=== PATIENT | female | born 1985 | race African-American/Black ===

== ENCOUNTER 2016-10-14 17:05 | Emergency (ER) | payer OTHER ==
[~2016-10-14] VITALS: Ht 157.5 cm; Wt 75.0 kg
[~2016-10-14 17:05] MED LIST: ACET-1145 PO; AMOX500T PO; NAPR500T8 PO
[2016-10-14 17:08] VITALS: Ht 157.5 cm; Wt 75.0 kg
[2016-10-14] MEDS ORDERED: CEPH-443 PO (17:23)
--- NOTE | 2016-10-14 17:23 | ERD ---
ER Documentation Chief Complaint Date/Time DATE: 10/14/16 TIME: 17:19 Chief Complaint Complains of rash Hx of eczema HPI This pleasant 31-year-old female presents to emergency department today for exacerbation of eczema currently on fluocinide 0.5% prescribed by primary physician. Patient reports she is using cream twice a day with no improvement of symptoms. She is scratching her hands, noted pustules and raised plaques on left palmar hand, and right hand. Patient reports she uses single ingredient soaps, does not use moisturizers, has used baby oil to try to soften plaques. 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 Patient also states she sleeps and cotton gloves without moisturizers. ROS All systems reviewed and are negative except as per history of present illness. Medications Home Meds Active Scripts Hydrophilic Base* (Aquaphor*) 454 Gm-Topical Oint, 1 APPLIC TOP BID for 30 Days , #120 JAR Prov:NICOLE,FABIAN 10/14/16 Cephalexin* (Keflex*) 500 Mg Capsule, 500 MG PO QID for 10 Days, CAP Prov:NICOLE,FABIAN 10/14/16 Reported Medications Naproxen* (Naproxen EC*) Unknown Strength Tablet.dr, PO BID, TAB 04/06/15 Amoxicillin Trihydrate (Amoxicillin) Unknown Strength Tablet, PO QID, TAB 04/06/15 Acetaminophen-Codeine (Tylenol With Codeine #3 Tablet) Unknown Strength Tablet, PO Q4H Y for PAIN, TAB 04/06/15 Allergies Allergies: Coded Allergies: No Known Allergy (Verified , 04/10/14) PMhx/Soc History of Surgery: No Anesthesia Reaction: No Hx Neurological Disorder: No Hx Respiratory Disorders: No Hx Cardiac Disorders: No Hx Psychiatric Problems: No Hx Miscellaneous Medical Probl: No Hx Alcohol Use: No Hx Substance Use: No Hx Tobacco Use: No Physical Exam Vitals Vital Signs Date Time Temp Pulse Resp B/P Pulse Ox O2 Delivery O2 Flow Rate FiO2 10/14/16 17:08 98.5 94 20 161/89 99 Physical Exam Const: No acute distress Head: Atraumatic Eyes: Normal Conjunctiva ENT: Normal External Ears, Nose and Mouth. Neck: Resp: Chest rises and falls symmetrically clear to auscultation bilaterally, no respiratory distress Cardio: Abd: Skin: Right hand presents with thick white plaques, watery vesicle, and erythema and finger webbing and thumb. Left hand presents with thick white plaques, watery vesicles and erythema between digits 3 and forearm, lesion moves between webbing to dorsum of hand. Also noted on lateral aspects of bilateral palms of hands. Skin is dry not oozing, crusted plaques appeared fissured and painful. Back: Ext: Neur: Awake and alert Psych: Normal Mood and Affect Procedures/MDM This 31-year-old female presents to emergency department for evaluation of exacerbation of hand dermatitis. Patient has been diagnosed with eczema, currently using fluocinonide 0.5% topical cream twice daily. Patient is not routinely moisturizing. But does utilize baby oil and sleeping with cotton gloves. 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 Psoriasis, or syphilis is unlikely. Patient will continue use of her fluocinonide ointment twice daily, add Aquaphor moisturizers frequently, lesions appear infected patient will be treated for general staff with Keflex 500 mg 4 times daily 10 days. Return to emergency department if symptoms fail to improve as anticipated. I feel the patient is stable for discharge at this time and outpatient management with primary care physician. I have discussed results, examination findings, the treatment plan with the patient and family present prior to discharge. Indications for emergent reevaluation, side effects of medication were also discussed. All questions were answered. Patient verbalizes understanding and agrees with plan of care. Departure Diagnosis: Primary Impression: Dermatitis Condition: Good Patient Instructions: Atopic Dermatitis (Eczema) Additional Instructions: Thank you for for coming to [facility] for your care today. Please ask your nurse or provider if you have questions about your care today and do not leave until all your questions have been answered. Please use any medications given as directed and follow-up with your doctor (or the doctor you were referred to) in the next 2-3 days. If you do not have a primary care doctor you may follow up at the [facility] (listed below). You may also use motrin and tylenol as needed for fever and/or pain unless instructed otherwise by your provider or nurse. Indications for more urgent follow-up have been discussed, but you may return to the Emergency Department at ANY time for any worrisome or worsening symptoms. If you have abdominal pain, please know that no test or exam you received is perfect and you should follow up within 8 hours for continued pain. If you had any imaging studies today, such as an X-Ray or CT Scan, these studies will be reviewed later by a radiologist. You will be called if there are important findings that were not identified today, so make sure the contact information you provided at registration is correct. If you received any narcotic pain control medicine today, such as Vicodin, Morphine or Dilaudid, your coordination and judgment may be affected for a number of hours. Please do not drive or operate heavy machinery, and you may want someone to assist you at home. If you were given a prescription for narcotic medication, be aware that it is very addictive- use sparingly and only if necessary. FABIAN RIVERA October 14, 2016 17:23
[2016-10-14] MEDS ORDERED: HDRP454O TOP (17:25)
== END 2016-10-14 17:30 | disposition home or self-care (01) ==
LOC: E/R 17:05
DX: L30.9 Dermatitis, unspecified (principal)
CPT/HCPCS: 99283

== ENCOUNTER 2016-10-26 20:07 | Emergency (ER) | payer OTHER ==
[~2016-10-26] VITALS: Wt 72.5 kg
[~2016-10-26 20:07] MED LIST changes: +CEPH-443 PO; +HDRP454O TOP
[2016-10-26] MEDS ORDERED: PRED20TA PO (20:55)
[2016-10-26] MEDS ORDERED: CEPH-443 PO (20:55)
--- NOTE | 2016-10-26 21:08 | ERD ---
ER Documentation Chief Complaint Date/Time DATE: 10/26/16 TIME: 21:02 Chief Complaint Rash got worst possible ecxema HPI This is a 31-year-old female presenting to emergency department for rash and pruritus. Patient states she has had an ongoing rash with pruritus for the past 2 months. Rashes is to palmar aspect of bilateral hands. Patient states she went to her primary doctor and was prescribed cream and then went to a cardiac cath lab radiology technologist who prescribed fluocinonide cream. Patient was seen here on 10/14 and was given a 5 day course of Keflex for possible infection. Patient states the Keflex seemed to improve the rash however her last day of the anabiotic was today and states the rash is starting to "spread again." Patient was diagnosed with severe eczema by her cardiac cath lab radiology technologist. No fevers or chills. No shortness of breath or difficulty breathing. No chest pain. ROS All systems reviewed and are negative except as per history of present illness. Medications Home Meds Active Scripts Cephalexin* (Keflex*) 500 Mg Capsule, 500 MG PO QID for 5 Days, CAP Prov:EDDIE AVALOS NP 10/26/16 Prednisone* (Prednisone*) 20 Mg Tab, 40 MG PO DAILY for 5 Days, TAB Prov:EDDIE AVALOS NP 10/26/16 Hydrophilic Base* (Aquaphor*) 454 Gm-Topical Oint, 1 APPLIC TOP BID for 30 Days , #120 JAR Prov:NICOLE,FABIAN 10/14/16 Cephalexin* (Keflex*) 500 Mg Capsule, 500 MG PO QID for 10 Days, CAP Prov:NICOLE,FABIAN 10/14/16 Reported Medications Naproxen* (Naproxen EC*) Unknown Strength Tablet.dr, PO BID, TAB 04/06/15 Amoxicillin Trihydrate (Amoxicillin) Unknown Strength Tablet, PO QID, TAB 04/06/15 Acetaminophen-Codeine (Tylenol With Codeine #3 Tablet) Unknown Strength Tablet, PO Q4H Y for PAIN, TAB 04/06/15 Allergies Allergies: Coded Allergies: No Known Allergy (Verified , 10/26/16) PMhx/Soc Medical and Surgical Hx: pt denies Medical Hx, pt denies Surgical Hx History of Surgery: No Anesthesia Reaction: No Hx Neurological Disorder: No Hx Respiratory Disorders: No Hx Cardiac Disorders: No Hx Psychiatric Problems: No Hx Miscellaneous Medical Probl: No Hx Alcohol Use: No Hx Substance Use: No Hx Tobacco Use: No Smoking Status: Never smoker Physical Exam Vitals Vital Signs Date Time Temp Pulse Resp B/P Pulse Ox O2 Delivery O2 Flow Rate FiO2 10/26/16 20:36 98.1 79 20 163/100 99 Physical Exam Const: No acute distress, alert Head: Atraumatic Eyes: Normal Conjunctiva ENT: Normal External Ears, Nose and Mouth. Neck: Full range of motion..~ No meningismus. Resp: Clear to auscultation bilaterally Cardio: Regular rate and rhythm, no murmurs Abd: Soft, non tender, non distended. Normal bowel sounds Skin: excoriation and crusting to palm and flexural areas of bilateral palms. mild erythema. no warmth, drainage, induration, abscess. sensation fully intact. Back: No midline or flank tenderness Ext: No cyanosis, or edema Neur: Awake and alert Psych: Normal Mood and Affect Procedures/MDM MDM: This is a 31-year-old female presenting to the emergency department for rash and pruritus. Patient states this is an ongoing problem and has been to see a cardiac cath lab radiology technologist in the past 1.5 months. Patient was diagnosed with eczema and was given a cream fluocinonide. Patient came to the ER on 10/14/2016 and was given prescription for Keflex. Patient states this medication seemed to improve her rash the most. Patient continues to have itching. No fevers or chills. No rashes limited to palmar aspect of bilateral hands especially in Flexural areas. No one else at home is similar rash. No new soaps, detergent, food or medications. Patient likely has atopic dermatitis versus contact dermatitis versus mild bacterial infection. Low suspicion for abscess, scabies or anaphylactic reaction. Patient is appropriate for outpatient management will be given prescription for Keflex and prednisone. Instructed patient to follow-up with primary care provider or cardiac cath lab radiology technologist in the next 2-3 days for reassessment and additional management.. Resources provided. Return to ED for any high fever, chest pain, difficulty breathing, shortness breath, wheezing, vomiting, diarrhea, abdominal pain or any new or worsening symptoms. Patient verbalizes understanding. All questions answered at discharge. Departure Diagnosis: Primary Impression: Eczema Eczema type: unspecified Qualified Code: L30.9 - Eczema, unspecified type Condition: Stable Patient Instructions: What Is Atopic Dermatitis?, Dermatitis, Non-Specific Referrals: TENZIN BENAVIDEZ MD, MICHAEL T. MD [facility] YOU HAVE RECEIVED A MEDICAL SCREENING EXAM AND THE RESULTS INDICATE THAT YOU DO NOT HAVE A CONDITION THAT REQUIRES URGENT TREATMENT IN THE EMERGENCY DEPARTMENT. FURTHER EVALUATION AND TREATMENT OF YOUR CONDITION CAN WAIT UNTIL YOU ARE SEEN IN YOUR DOCTORS OFFICE WITHIN THE NEXT 1-2 DAYS. IT IS YOUR RESPONSIBILITY TO MAKE AN APPOINTMENT FOR FOLOW-UP CARE. IF YOU HAVE A PRIMARY DOCTOR --you should call your primary doctor and schedule an appointment IF YOU DO NOT HAVE A PRIMARY DOCTOR YOU CAN CALL OUR PHYSICIAN REFERRAL HOTLINE AT IF YOU CAN NOT AFFORD TO SEE A PHYSICIAN YOU CAN CHOSE FROM THE FOLLOWING [facility] [address] [facility] [address] [facility] [address] [facility] [address] [facility] [address] [facility]. [facility] [address] [facility] [facility] YOU HAVE RECEIVED A MEDICAL SCREENING EXAM AND THE RESULTS INDICATE THAT YOU DO NOT HAVE A CONDITION THAT REQUIRES URGENT TREATMENT IN THE EMERGENCY DEPARTMENT. FURTHER EVALUATION AND TREATMENT OF YOUR CONDITION CAN WAIT UNTIL YOU ARE SEEN IN YOUR DOCTORS OFFICE WITHIN THE NEXT 1-2 DAYS. IT IS YOUR RESPONSIBILITY TO MAKE AN APPOINTMENT FOR FOLOW-UP CARE. IF YOU HAVE A PRIMARY DOCTOR --you should call your primary doctor and schedule and appointment IF YOU DO NOT HAVE A PRIMARY DOCTOR YOU CAN CALL OUR PHYSICIAN REFERRAL HOTLINE AT . IF YOU CAN NOT AFFORD TO SEE A PHYSICIAN YOU CAN CHOSE FROM THE FOLLOWING [facility]: [facility] [address] [place] [address] [facility] [address] [place] [address] [facility] [address] [place] [address] Additional Instructions: Call your primary care doctor TOMORROW for an appointment during the next 2-3 days.See the doctor sooner or return here if your condition worsens before your appointment time. Return to ED for any high fever, chest pain, difficulty breathing, shortness breath, wheezing, vomiting, diarrhea, abdominal pain or any new or worsening symptoms. EDDIE AVALOS NP Oct 26, 2016 21:08
== END 2016-10-26 21:22 | disposition home or self-care (01) ==
LOC: FTE 20:07
DX: L30.9 Dermatitis, unspecified (principal)
CPT/HCPCS: 99284

== ENCOUNTER 2016-12-10 17:22 | Emergency (ER) | payer OTHER ==
[~2016-12-10] VITALS: Ht 157.5 cm; Wt 72.5 kg
[~2016-12-10 17:22] MED LIST changes: +PRED20TA PO
[2016-12-10 17:26] VITALS: Ht 157.5 cm; Wt 72.5 kg
[2016-12-10] MEDS ORDERED: PRED20TA PO (17:53)
[2016-12-10] MEDS ORDERED: TRIA15OI9 TOP (17:55)
--- NOTE | 2016-12-10 18:05 | ERA ---
ER Documentation Chief Complaint Date/Time DATE: 12/10/16 TIME: 18:01 Chief Complaint eczema to hands HPI This is a 31-year-old female presenting with a 2-3 month history of rash on the palmar aspect hands. Patient states that the rash is moderately pruritic. Patient states that there have been bubbles on the palms that have resolved. Patient tried putting gloves on that were soaked and Aquaphor lotion last night with moderate relief. Patient has seen a gristmill operator but received no treatment to insurance issues. Patient denies fever, difficulty breathing, chest pain, shortness of breath, spreading rash, fever, chills or drainage. Patient has no other complaints and describes no other associated manifestations. Vaccination status is up-to-date there is no recent travel. Nursing notes have been reviewed and are consistent with history given. ROS All systems reviewed and are negative except as per history of present illness. Medications Home Meds Active Scripts Triamcinolone Acetonide (Triamcinolone Acetonide) 0.5% - 15 Gm Oint..gm., 1 APPLIC TOP BID, #1 TUB Prov:KAVON ADAMSON PA-C 12/10/16 Prednisone* (Prednisone*) 20 Mg Tab, 40 MG PO DAILY for 4 Days, TAB Prov:KAVON ADAMSON PA-C 12/10/16 Cephalexin* (Keflex*) 500 Mg Capsule, 500 MG PO QID for 5 Days, CAP Prov:EDDIE AVALOS NP 10/26/16 Prednisone* (Prednisone*) 20 Mg Tab, 40 MG PO DAILY for 5 Days, TAB Prov:EDDIE AVALOS NP 10/26/16 Hydrophilic Base* (Aquaphor*) 454 Gm-Topical Oint, 1 APPLIC TOP BID for 30 Days , #120 JAR Prov:NICOLE,FABIAN 10/14/16 Cephalexin* (Keflex*) 500 Mg Capsule, 500 MG PO QID for 10 Days, CAP Prov:NICOLE,FABIAN 10/14/16 Reported Medications Naproxen* (Naproxen EC*) Unknown Strength Tablet.dr, PO BID, TAB 04/06/15 Amoxicillin Trihydrate (Amoxicillin) Unknown Strength Tablet, PO QID, TAB 04/06/15 Acetaminophen-Codeine (Tylenol With Codeine #3 Tablet) Unknown Strength Tablet, PO Q4H Y for PAIN, TAB 04/06/15 Allergies Allergies: Coded Allergies: No Known Allergy (Verified , 10/26/16) PMhx/Soc Medical and Surgical Hx: pt denies Medical Hx, pt denies Surgical Hx History of Surgery: No Anesthesia Reaction: No Hx Neurological Disorder: No Hx Respiratory Disorders: No Hx Cardiac Disorders: No Hx Psychiatric Problems: No Hx Miscellaneous Medical Probl: No Hx Alcohol Use: No Hx Substance Use: No Hx Tobacco Use: No Smoking Status: Never smoker Physical Exam Vitals Vital Signs Date Time Temp Pulse Resp B/P Pulse Ox O2 Delivery O2 Flow Rate FiO2 12/10/16 17:26 98.9 84 18 186/117 98 Physical Exam Const: Healthy-appearing. Well-nourished. Well-developed. No acute distress. Skin: Excoriation and crusting to palm and flexural areas of bilateral palms. mild erythema and desquamation. no warmth, drainage, induration, abscess. sensation fully intact. Ext: As noted in the skin physical. No edema or palpable cord. Normal movement of all extremities grossly observed. Neur: Awake, alert and oriented x3. Neurovascularly intact bilaterally. Oral: No oral edema visualized. Mucous membranes moist and pink. Head: Normocephalic, Atraumatic. Eyes: Non-injected; No discharge. EOMI and BOGDAN bilaterally. Ears: Normal External Ears, EACs clear, TM normal bilaterally without erythema. Nose: Normal external nose; no discharge, or sinus tenderness. Neck: No cervical lymphadenopathy, masses or goiter palpated. ~ No meningismus. Pulm: Good air movement in upper and lower respiratory tracts. No dyspnea, stridor, tripoding or drooling. Clear to auscultation bilaterally. Cardio: Regular rate and rhythm; No murmurs, gallops or rubs auscultated. No JVD grossly observed. No cyanosis. Capillary refill less than 2 seconds. Abd: Soft, non tender, non distended. No guarding, masses. Normal bowel sounds. MS: Normal motor strength, normal tone with gross examination. Back: No midline, flank or CVA tenderness. Psych: Normal Mood and Affect. Procedures/MDM This is a 31-year-old female presenting with a chief complaint of rash on the palmar aspect of bilateral hands as described in history and physical examination. At this time I very little suspicion for systemic or bacterial involvement. Previous notes have revealed atopic dermatitis which is at the top of the differential along with late dyshidrotic eczema. Patient will receive topical triamcinolone ointment for dryness which is the main complaint along with pruritus. Patient will also receive a four-day course of prednisone as she states that this has helped in the past. Patient has seen a gristmill operator and I have recommended that she follow-up which she says she will be able to do within the next 2 weeks. I recommend that the next 2-3 days would be the best time frame. I have spoken to my attending Dr. Davis who agrees with the assessment and plan. I have spoke with the patient regarding their condition and future management. They have verbally responded that they understand their status and treatment plan. The patients vitals are stable, and their current condition is appropriate for discharge. The patient will be given discharge instructions with return precautions. Departure Diagnosis: Primary Impression: Dermatitis Additional Impressions: Dermatitis, dyshidrotic Dyshidrotic eczema Condition: Stable Patient Instructions: Atopic Dermatitis (Eczema) Additional Instructions: Follow-up with dermatology and 2-3 days. Return the the emergency department immediately if symptoms worsen or change. If you have any questions regarding medications, ask your pharmacist or us before you leave. If any adverse reactions occur while taking your medications, discontinue the treatment and return to the emergency department immediately. Take your medications as directed, and complete the entire course of treatment. KAVON ADAMSON PA-C Dec 10, 2016 18:05
== END 2016-12-10 18:13 | disposition home or self-care (01) ==
LOC: FTE 17:22
DX: L30.1 Dyshidrosis [pompholyx] (principal)
CPT/HCPCS: 99284

== ENCOUNTER 2017-04-08 14:36 | Emergency (ER) | payer OTHER ==
[~2017-04-08] VITALS: Wt 76.0 kg
[~2017-04-08 14:36] MED LIST changes: +TRIA15OI9 TOP
[2017-04-08] MEDS ORDERED: SULF1TAB31 PO (14:56)
[2017-04-08] MEDS ORDERED: IBUP-1542 PO (14:56)
[2017-04-08] MEDS ORDERED: CEPH-443 PO (14:56)
[2017-04-08] MEDS ORDERED: LIDOCAINE 1% (MDV) 20 ML INJ SC ONE (15:00)
[2017-04-08] MEDS ORDERED: HYDROCODONE/APAP (5/325) TAB PO ONE (15:00)
[2017-04-08] MEDS ORDERED: CEPHALEXIN 500 MG CAP PO ONE (15:00)
[2017-04-08] MEDS ORDERED: TRIMETHOPRIM/SULFAMETHOX (DS) TAB PO ONE (15:00)
--- NOTE | 2017-04-08 15:09 | ERD ---
ER Documentation Chief Complaint Chief Complaint r arm abscess HPI 31-year-old female otherwise healthy comes in with right describes as pressure- like sharp pain in the axilla, and this happened after she shaves. She has 2 areas that are swollen. She has not had any fevers, chills, chest pain, shortness of breath. ROS All systems reviewed and are negative except as per history of present illness. Medications Home Meds Active Scripts Ibuprofen* (Motrin*) 600 Mg Tab, 600 MG PO Q6, #30 TAB Prov:CHASTITY HU PA-C 04/08/17 Sulfamethoxazole/Trimethoprim* (Bactrim Ds* Tablet) 1 Each Tablet, 1 TAB PO BID , #14 TAB Prov:CHASTITY HU PA-C 04/08/17 Cephalexin* (Keflex*) 500 Mg Capsule, 500 MG PO QID for 7 Days, CAP Prov:CHASTITY HU PA-C 04/08/17 Triamcinolone Acetonide (Triamcinolone Acetonide) 0.5% - 15 Gm Oint..gm., 1 APPLIC TOP BID, #1 TUB Prov:KAVON ADAMSON PA-C 12/10/16 Prednisone* (Prednisone*) 20 Mg Tab, 40 MG PO DAILY for 4 Days, TAB Prov:KAVON ADAMSON PA-C 12/10/16 Cephalexin* (Keflex*) 500 Mg Capsule, 500 MG PO QID for 5 Days, CAP Prov:EDDIE AVALOS NP 10/26/16 Prednisone* (Prednisone*) 20 Mg Tab, 40 MG PO DAILY for 5 Days, TAB Prov:EDDIE AVALOS NP 10/26/16 Hydrophilic Base* (Aquaphor*) 454 Gm-Topical Oint, 1 APPLIC TOP BID for 30 Days , #120 JAR Prov:NICOLE,FABIAN 10/14/16 Cephalexin* (Keflex*) 500 Mg Capsule, 500 MG PO QID for 10 Days, CAP Prov:NICOLE,FABIAN 10/14/16 Reported Medications Naproxen* (Naproxen EC*) Unknown Strength Tablet.dr, PO BID, TAB 04/06/15 Amoxicillin Trihydrate (Amoxicillin) Unknown Strength Tablet, PO QID, TAB 04/06/15 Acetaminophen-Codeine (Tylenol With Codeine #3 Tablet) Unknown Strength Tablet, PO Q4H Y for PAIN, TAB 04/06/15 Allergies Allergies: Coded Allergies: No Known Allergy (Verified , 10/26/16) PMhx/Soc Medical and Surgical Hx: pt denies Medical Hx, pt denies Surgical Hx History of Surgery: No Anesthesia Reaction: No Hx Neurological Disorder: No Hx Respiratory Disorders: No Hx Cardiac Disorders: No Hx Psychiatric Problems: No Hx Miscellaneous Medical Probl: No Hx Alcohol Use: No Hx Substance Use: No Hx Tobacco Use: No Smoking Status: Never smoker Physical Exam Vitals Vital Signs Date Time Temp Pulse Resp B/P Pulse Ox O2 Delivery O2 Flow Rate FiO2 04/08/17 14:40 99.6 98 20 162/106 99 Physical Exam General: Well-developed, well-nourished. The patient appears in no acute distress. HEENT: Head is normocephalic, atraumatic. No scleral icterus. Neck: Supple. Nontender. Lungs: Clear to auscultation. Normal air movement. Heart: Regular rate and rhythm. S1 and S2 are normal. No murmurs, gallops, or rubs. Abdomen: Nondistended. Extremities: No clubbing or cyanosis. Moving extremities x 4. No weakness. Neurologic: Alert and oriented 3. No focal deficits. Normal speech and gait. Skin: In the right axilla there are 2 abscesses. There is one in the superior portion approximately 1.5 cm that is indurated, tender to palpation with erythema. In the low there is a 2 cm area of induration with a purulent had, it is tender to palpation, mildly fluctuant. There is no lymphatic streaking. Results 24 hrs Current Medications Medications (Trade) Dose Ordered Sig/Gogo Route PRN Reason Start Time Stop Time Status Last Admin Dose Admin Lidocaine (Xylocaine 1% (Mdv) 20 ml) 20 ml ONCE ONCE SC 04/08/17 15:00 04/08/17 15:01 DC Cephalexin (Keflex) 500 mg ONCE ONCE PO 04/08/17 15:00 04/08/17 15:01 DC 04/08/17 15:05 Trimethoprim/ Sulfamethoxazole (Bactrim (Ds)) 1 tab ONCE ONCE PO 04/08/17 15:00 04/08/17 15:01 DC 04/08/17 15:05 Acetaminophen/ Hydrocodone Bitart (Irving (5/325)) 1 tab ONCE ONCE PO 04/08/17 15:00 04/08/17 15:01 DC 04/08/17 15:05 Procedures/MDM #1 Abscess Incision and Drainage with irrigation by me: Patient was verbally consented Location: Right axilla #1 Anesthesia: Local 1% Lidocaine Technique: Irrigated. Disrupted loculations w/ instrumentation Packing: None Complications: Neurovascularly intact post procedure 48 hour wound check. Scar minimization instructions given. #2 Abscess Incision and Drainage with irrigation by me: Patient was verbally consented Location: Right axilla (inferior) Anesthesia: Local 1% Lidocaine Technique: Irrigated. Disrupted loculations w/ instrumentation Packing: None Complications: Neurovascularly intact post procedure 48 hour wound check. Scar minimization instructions given. Patient's skin symptoms have stabilized while they have been evaluated in the department and are appropriate for outpatient care and work up. Exam and w/u not consistent w/ sepsis, deep space infection, or foreign body. Departure Diagnosis: Primary Impression: Abscess Additional Impression: Encounter for incision and drainage procedure Condition: Good Patient Instructions: Abscess, Incision And Drainage Additional Instructions: Follow up in 2 days in your clinic for wound check. CHASTITY HU PA-C Apr 08, 2017 15:09
== END 2017-04-08 15:55 | disposition home or self-care (01) ==
LOC: FTE 14:36
DX: L02.411 Cutaneous abscess of right axilla (principal)
CPT/HCPCS: 10061; Z7502; Z7610

== ENCOUNTER 2017-04-10 06:21 | Emergency (ER) | payer OTHER ==
[~2017-04-10] VITALS: Ht 160 cm; Wt 75.0 kg
[~2017-04-10 06:21] MED LIST changes: +IBUP-1542 PO; +SULF1TAB31 PO
[2017-04-10 06:23] VITALS: Ht 160 cm; Wt 75.0 kg
--- NOTE | 2017-04-10 07:34 | ERD ---
ER Documentation Chief Complaint Chief Complaint right axilla wound check HPI This is a 31-year-old female who presents the emergency department today for a wound check of 2 abscesses she had drained in her right arm a couple of days ago. Denies any fevers or chills. States that she thinks she is getting a cold. States she is taking her antibiotics as prescribed. ROS All systems reviewed and are negative except as per history of present illness. Medications Home Meds Active Scripts Ibuprofen* (Motrin*) 600 Mg Tab, 600 MG PO Q6, #30 TAB Prov:CHASTITY HU PA-C 04/08/17 Sulfamethoxazole/Trimethoprim* (Bactrim Ds* Tablet) 1 Each Tablet, 1 TAB PO BID , #14 TAB Prov:CHASTITY HU PA-C 04/08/17 Cephalexin* (Keflex*) 500 Mg Capsule, 500 MG PO QID for 7 Days, CAP Prov:CHASTITY HU PA-C 04/08/17 Triamcinolone Acetonide (Triamcinolone Acetonide) 0.5% - 15 Gm Oint..gm., 1 APPLIC TOP BID, #1 TUB Prov:KAVON ADAMSON PA-C 12/10/16 Prednisone* (Prednisone*) 20 Mg Tab, 40 MG PO DAILY for 4 Days, TAB Prov:KAVON ADAMSON PA-C 12/10/16 Cephalexin* (Keflex*) 500 Mg Capsule, 500 MG PO QID for 5 Days, CAP Prov:EDDIE AVALOS NP 10/26/16 Prednisone* (Prednisone*) 20 Mg Tab, 40 MG PO DAILY for 5 Days, TAB Prov:EDDIE AVALOS NP 10/26/16 Hydrophilic Base* (Aquaphor*) 454 Gm-Topical Oint, 1 APPLIC TOP BID for 30 Days , #120 JAR Prov:NICOLE,FABIAN 10/14/16 Cephalexin* (Keflex*) 500 Mg Capsule, 500 MG PO QID for 10 Days, CAP Prov:NICOLE,FABIAN 10/14/16 Reported Medications Naproxen* (Naproxen EC*) Unknown Strength Tablet., PO BID, TAB 04/06/15 Amoxicillin Trihydrate (Amoxicillin) Unknown Strength Tablet, PO QID, TAB 04/06/15 Acetaminophen-Codeine (Tylenol With Codeine #3 Tablet) Unknown Strength Tablet, PO Q4H Y for PAIN, TAB 04/06/15 Allergies Allergies: Coded Allergies: No Known Allergy (Verified , 10/26/16) PMhx/Soc History of Surgery: No Anesthesia Reaction: No Hx Neurological Disorder: No Hx Respiratory Disorders: No Hx Cardiac Disorders: No Hx Psychiatric Problems: No Hx Miscellaneous Medical Probl: No Hx Alcohol Use: No Hx Substance Use: No Hx Tobacco Use: No Physical Exam Vitals Vital Signs Date Time Temp Pulse Resp B/P Pulse Ox O2 Delivery O2 Flow Rate FiO2 04/10/17 06:23 98.3 91 20 167/99 99 Physical Exam Const: NAD Head: Atraumatic Eyes: Normal Conjunctiva ENT: Normal External Ears, Nose and Mouth. Neck: Full range of motion..~ No meningismus. Resp: Clear to auscultation bilaterally Cardio: Regular rate and rhythm, no murmurs Abd: Soft, non tender, non distended. Normal bowel sounds Skin: Right axilla with evidence of 2 small abscesses that are draining with mild induration. No erythema or warmth. Back: No midline or flank tenderness Ext: No cyanosis, or edema Neur: Awake and alert Psych: Normal Mood and Affect Procedures/MDM This is a 31-year-old female who presents the emergency department today for a wound check of 2 abscesses that she had drained 2 days ago. Upon review of patient's medical records patient had an incision and drainage on April 08, 2017 for 2 small areas of abscesses in her right axilla. Patient is afebrile and otherwise well-appearing. There was no wound packing in place and upon review of patient's medical records wound packing was not placed. Patient has been instructed to continue taking her antibiotics as prescribed. Have low suspicion for sepsis, deep space tracking infection. Wound was redressed here in the emergency department and she was instructed to keep wound clean and dry. At this time the patient is stable for discharge and outpatient management. Patient should follow up with their PCP in the next 1-2 days. They may return to the emergency department sooner for any persistent or worsening of symptoms. Patient understood and agreed with the plan. Departure Diagnosis: Primary Impression: Encounter for wound re-check Condition: Fair Patient Instructions: Wound Care Referrals: [facility] YOU HAVE RECEIVED A MEDICAL SCREENING EXAM AND THE RESULTS INDICATE THAT YOU DO NOT HAVE A CONDITION THAT REQUIRES URGENT TREATMENT IN THE EMERGENCY DEPARTMENT. FURTHER EVALUATION AND TREATMENT OF YOUR CONDITION CAN WAIT UNTIL YOU ARE SEEN IN YOUR DOCTORS OFFICE WITHIN THE NEXT 1-2 DAYS. IT IS YOUR RESPONSIBILITY TO MAKE AN APPOINTMENT FOR FOLOW-UP CARE. IF YOU HAVE A PRIMARY DOCTOR --you should call your primary doctor and schedule an appointment IF YOU DO NOT HAVE A PRIMARY DOCTOR YOU CAN CALL OUR PHYSICIAN REFERRAL HOTLINE AT IF YOU CAN NOT AFFORD TO SEE A PHYSICIAN YOU CAN CHOSE FROM THE FOLLOWING [facility] [address] [facility] [address] [facility] [address] [facility] [address] [facility]. [facility] [address] [facility]. [facility]. [address] Additional Instructions: Call your primary care doctor TOMORROW for an appointment during the next 1-2 days.See the doctor sooner or return here if your condition worsens before your appointment time. Continue taking your antibiotics as prescribed. Keep area clean and dry. MARIE MORAES PA-C Apr 10, 2017 07:34
== END 2017-04-10 07:27 | disposition home or self-care (01) ==
LOC: FTE 06:21
DX: Z48.01 Encounter for change or removal of surgical wound dressing (principal)
CPT/HCPCS: 99281

== ENCOUNTER 2017-04-26 12:21 | Emergency (ER) | payer OTHER ==
[~2017-04-26] VITALS: Ht 157.5 cm; Wt 75.5 kg
[2017-04-26 12:24] VITALS: Ht 157.5 cm; Wt 75.5 kg
[2017-04-26] MEDS ORDERED: AMOX500C2 PO (12:50)
[2017-04-26] MEDS ORDERED: IBUP-1542 PO (12:50)
--- NOTE | 2017-04-26 12:53 | ERD ---
ER Documentation Chief Complaint Chief Complaint FEVER , SORE THROAT X 2 DAYS HPI This 31-year-old female presents with fever and sore throat for last 3 days. She has cough, vomiting, abdominal pain, neck stiffness, rashes. ROS All systems reviewed and are negative except as per history of present illness. Medications Home Meds Active Scripts Ibuprofen* (Motrin*) 600 Mg Tab, 600 MG PO Q6, #15 TAB Prov:MAG BAPTISTE MD 04/26/17 Amoxicillin* (Amoxicillin*) 500 Mg Cap, 500 MG PO TID for 10 Days, CAP Prov:MAG BAPTISTE MD 04/26/17 Ibuprofen* (Motrin*) 600 Mg Tab, 600 MG PO Q6, #30 TAB Prov:CHASTITY HU PA-C 04/08/17 Sulfamethoxazole/Trimethoprim* (Bactrim Ds* Tablet) 1 Each Tablet, 1 TAB PO BID , #14 TAB Prov:CHASTITY HU PA-C 04/08/17 Cephalexin* (Keflex*) 500 Mg Capsule, 500 MG PO QID for 7 Days, CAP Prov:CHASTITY HU PA-C 04/08/17 Triamcinolone Acetonide (Triamcinolone Acetonide) 0.5% - 15 Gm Oint..gm., 1 APPLIC TOP BID, #1 TUB Prov:KAVON ADAMSON PA-C 12/10/16 Prednisone* (Prednisone*) 20 Mg Tab, 40 MG PO DAILY for 4 Days, TAB Prov:KAVON ADAMSON PA-C 12/10/16 Cephalexin* (Keflex*) 500 Mg Capsule, 500 MG PO QID for 5 Days, CAP Prov:EDDIE AVALOS NP 10/26/16 Prednisone* (Prednisone*) 20 Mg Tab, 40 MG PO DAILY for 5 Days, TAB Prov:EDDIE AVALOS NP 10/26/16 Hydrophilic Base* (Aquaphor*) 454 Gm-Topical Oint, 1 APPLIC TOP BID for 30 Days , #120 JAR Prov:NICOLE,FABIAN 10/14/16 Cephalexin* (Keflex*) 500 Mg Capsule, 500 MG PO QID for 10 Days, CAP Prov:NICOLE,FABIAN 10/14/16 Reported Medications Naproxen* (Naproxen EC*) Unknown Strength Tablet.dr, PO BID, TAB 04/06/15 Amoxicillin Trihydrate (Amoxicillin) Unknown Strength Tablet, PO QID, TAB 04/06/15 Acetaminophen-Codeine (Tylenol With Codeine #3 Tablet) Unknown Strength Tablet, PO Q4H Y for PAIN, TAB 04/06/15 Allergies Allergies: Coded Allergies: No Known Allergy (Verified , 10/26/16) PMhx/Soc History of Surgery: No Anesthesia Reaction: No Hx Neurological Disorder: No Hx Respiratory Disorders: No Hx Cardiac Disorders: No Hx Psychiatric Problems: No Hx Miscellaneous Medical Probl: No Hx Alcohol Use: No Hx Substance Use: No Hx Tobacco Use: No Physical Exam Vitals Vital Signs Date Time Temp Pulse Resp B/P Pulse Ox O2 Delivery O2 Flow Rate FiO2 04/26/17 12:24 100.8 88 18 171/94 100 Physical Exam Const: [] Alert, [id number] Head: Atraumatic Eyes: Normal Conjunctiva ENT: Normal External Ears, Nose and Mouth. TMs normal. Tonsils 3+ with erythema and exudate. Uvula midline and airway patent. Neck: Full range of motion..~ No meningismus. Resp: Clear to auscultation bilaterally Cardio: Regular rate and rhythm, no murmurs Abd: Soft, non tender, non distended. Normal bowel sounds Skin: No petechiae or rashes Back: No midline or flank tenderness Ext: No cyanosis, or edema Neur: Awake and alert Psych: Normal Mood and Affect Results 24 hrs Current Medications Medications (Trade) Dose Ordered Sig/Gogo Route PRN Reason Start Time Stop Time Status Last Admin Dose Admin Ibuprofen (Motrin) 600 mg ONCE ONCE PO 04/26/17 13:00 04/26/17 13:01 Procedures/MDM Patient presents with febrile illness signs of exudative pharyngitis without evidence of abscess or airway obstruction. She will choose amoxicillin ibuprofen, return precautions and primary care follow-up. The patient was stable with no new complaints during the ER course. Clinically, there is no current evidence to suggest meningitis, sepsis, acute abdomen, pneumonia, acute coronary syndrome, pulmonary embolism, or any other emergent condition appearing to require further evaluation or hospitalization. The patient should certainly return for any new or worsening symptoms per the aftercare instructions. They should otherwise follow-up with her primary care doctor for reevaluation this week. Departure Diagnosis: Primary Impression: Pharyngitis Pharyngitis/tonsillitis etiology: unspecified etiology Qualified Code: J02.9 - Pharyngitis, unspecified etiology Condition: Stable Patient Instructions: Pharyngitis, Strep (Presumed) Additional Instructions: Recheck for new or worsening symptoms or with primary care doctor. MAG BAPTISTE MD Apr 26, 2017 12:53
[2017-04-26] MEDS ORDERED: IBUPROFEN 600 MG TAB PO ONE (13:00)
== END 2017-04-26 14:11 | disposition home or self-care (01) ==
LOC: FTE 12:21
DX: J02.9 Acute pharyngitis, unspecified (principal)
CPT/HCPCS: Z7502; Z7610; 99283

== ENCOUNTER 2017-04-28 23:22 | Emergency (ER) | payer OTHER ==
[~2017-04-28] VITALS: Ht 162.6 cm; Wt 75.3 kg
[~2017-04-28 23:22] MED LIST changes: +AMOX500C2 PO
[2017-04-28 23:25] VITALS: Ht 162.6 cm; Wt 75.3 kg
[2017-04-29] MEDS ORDERED: KETOROLAC 60 MG INJ IM STA (03:04)
[2017-04-29] MEDS ORDERED: HYDR-906 PO (03:13)
--- NOTE | 2017-04-29 03:27 | ERD ---
ER Documentation Chief Complaint Chief Complaint ST since Friday, prescribed w/ ATB and ibuprofen; per pt not helping HPI 31-year-old female presents here in emergency department for complaints of sore throat started 3 days ago, patient was seen here in the hospital, was given ibuprofen and amoxicillin, only mild relief, ibuprofen has not been helping for the pain. Patient describes the pain as throbbing pain, 8/10 scale, as was upon swallowing. Patient has not been having stridor. Patient does not have any sick contacts. ROS All systems reviewed and are negative except as per history of present illness. Medications Home Meds Active Scripts Hydrocodone/Acetaminophen (Wall[place] 5-325 Tablet) 1 Each Tablet, 1 TAB PO Q6H Y for SEVERE PAIN LEVEL 7-10, #20 TAB Prov:GARCIA HESTER NP 04/29/17 Ibuprofen* (Motrin*) 600 Mg Tab, 600 MG PO Q6, #15 TAB Prov:MAG BAPTISTE MD 04/26/17 Amoxicillin* (Amoxicillin*) 500 Mg Cap, 500 MG PO TID for 10 Days, CAP Prov:MAG BAPTISTE MD 04/26/17 Ibuprofen* (Motrin*) 600 Mg Tab, 600 MG PO Q6, #30 TAB Prov:CHASTITY HU PA-C 04/08/17 Sulfamethoxazole/Trimethoprim* (Bactrim Ds* Tablet) 1 Each Tablet, 1 TAB PO BID , #14 TAB Prov:CHASTITY HU PA-C 04/08/17 Cephalexin* (Keflex*) 500 Mg Capsule, 500 MG PO QID for 7 Days, CAP Prov:CHASTITY HU PA-C 04/08/17 Triamcinolone Acetonide (Triamcinolone Acetonide) 0.5% - 15 Gm Oint..gm., 1 APPLIC TOP BID, #1 TUB Prov:KAVON ADAMSON PA-C 12/10/16 Prednisone* (Prednisone*) 20 Mg Tab, 40 MG PO DAILY for 4 Days, TAB Prov:KAVON ADAMSON PA-C 12/10/16 Cephalexin* (Keflex*) 500 Mg Capsule, 500 MG PO QID for 5 Days, CAP Prov:EDDIE AVALOS NP 10/26/16 Prednisone* (Prednisone*) 20 Mg Tab, 40 MG PO DAILY for 5 Days, TAB Prov:EDDIE AVALOS [employer] 10/26/16 Hydrophilic Base* (Aquaphor*) 454 Gm-Topical Oint, 1 APPLIC TOP BID for 30 Days , #120 JAR Prov:NICOLE,FABIAN 10/14/16 Cephalexin* (Keflex*) 500 Mg Capsule, 500 MG PO QID for 10 Days, CAP Prov:NICOLE,FABIAN 10/14/16 Reported Medications Naproxen* (Naproxen EC*) Unknown Strength Tablet.dr, PO BID, TAB 04/06/15 Amoxicillin Trihydrate (Amoxicillin) Unknown Strength Tablet, PO QID, TAB 04/06/15 Acetaminophen-Codeine (Tylenol With Codeine #3 Tablet) Unknown Strength Tablet, PO Q4H Y for PAIN, TAB 04/06/15 Allergies Allergies: Coded Allergies: No Known Allergy (Verified , 10/26/16) PMhx/Soc Medical and Surgical Hx: pt denies Medical Hx, pt denies Surgical Hx History of Surgery: No Anesthesia Reaction: No Hx Neurological Disorder: No Hx Respiratory Disorders: No Hx Cardiac Disorders: No Hx Psychiatric Problems: No Hx Miscellaneous Medical Probl: No Hx Alcohol Use: No Hx Substance Use: No Hx Tobacco Use: No FmHx Family History: No coronary disease, No diabetes, No other Physical Exam Vitals Vital Signs Date Time Temp Pulse Resp B/P Pulse Ox O2 Delivery O2 Flow Rate FiO2 04/28/17 23:25 97.5 93 20 164/102 98 Physical Exam Physical exam GENERAL: The patient is well developed and appropriate for usual state of health, in no apparent distress. HEENT: Atraumatic. Ears: Normal tympanic membrane, no erythema or bulging. No ear canal swelling. No ear discharge. Nose: normal nasal turbinates, no erythema or swelling. Normal nasal discharge. Throat: oropharynx with tonsillar swelling and tonsillar exudate noted on bilateral tonsils. No lymphadenopathy. Erythematous with tonsillar swelling and tonsillar exudates noted CHEST: Clear to auscultation bilaterally. There are no rales, wheezes or rhonchi. HEART: Regular rate and rhythm. No murmurs, clicks, rubs or gallops. No S3 or S4. ABDOMEN: Soft, nontender and nondistended. Good bowel sounds. No rebound or guarding. No gross peritonitis. No gross organomegaly or masses. No Ortega sign or McBurney point tenderness. BACK: No midline or flank tenderness. EXTREMITIES: Equal pulses bilaterally. There is no peripheral clubbing, cyanosis or edema. No focal swelling or erythema. Full range of motion. Grossly neurovascularly intact. NEURO: Alert and oriented. Cranial nerves 2-12 intact. Motor strength in all 4 extremities with 5/5 strength. Sensation grossly intact. Normal speech and gait. SKIN: There is no apparent rash or petechia. The skin is warm and dry. HEMATOLOGIC AND LYMPHATIC: There is no evidence of excessive bruising or lymphedema. No gross cervical, axillary, or inguinal lymphadenopathy. HEENT: Atraumatic. Ears: Normal tympanic membrane, no erythema or bulging. No ear canal swelling. No ear discharge. Nose: normal nasal turbinates, no erythema or swelling. Normal nasal discharge. Throat: oropharynx clear. No tonsillar swelling or tonsillar exudates. No lymphadenopathy. Results 24 hrs Current Medications Medications (Trade) Dose Ordered Sig/Gogo Route PRN Reason Start Time Stop Time Status Last Admin Dose Admin Penicillin G Benzathine (Bicillin La) 1,200,000 units ONCE ONCE IM 04/29/17 03:30 04/29/17 03:31 Ketorolac Tromethamine (Toradol) 60 mg ONCE STAT IM 04/29/17 03:04 04/29/17 03:06 DC Penicillin G was given here in emergency department, patient was also given Toradol for pain. Procedures/MDM Medical decision making: Patient symptoms is likely consistent with acute bacterial pharyngitis, most likely strep throat. Low suspicion for peritonsillar abscess, mononucleosis, no symptoms of epiglottitis, laryngitis. No oral airway obstruction noted. No symptoms of sepsis at this time. Patient appears well and is hemodynamically stable. Patient was given continue amoxicillin, was given a prescription for Wallback, is advised to follow-up with primary care doctor in 2-3 days for reevaluation of symptoms. Patient is advised to do salt water gargles. Patient is advised to return to emergency department for worsening symptoms. Disposition: Home. Stable. Disclaimer: Inadvertent spelling and grammatical errors are likely due to EHR/ dictation software use and do not reflect on the overall quality of patient care. Also, please note that the electronic time recorded on this note does not necessarily reflect the actual time of the patient encounter. Departure Diagnosis: Primary Impression: Strep pharyngitis Condition: Stable Patient Instructions: Pharyngitis, Strep (Presumed) GARCIA HESTER NP Apr 29, 2017 03:27
[2017-04-29] MEDS ORDERED: PENICILLIN G BENZ 1.2 MIL UNIT SYG IM ONE (03:30)
[2017-04-29 04:04] VITALS: BP 168/96; PULSE 72; RESP 16; TEMP 98.5
== END 2017-04-29 04:07 | disposition home or self-care (01) ==
LOC: FTE 23:22
DX: J02.0 Streptococcal pharyngitis (principal)
CPT/HCPCS: 96372; J0561; J1885; Z7502

== ENCOUNTER 2018-10-05 18:50 | Emergency (ER) | payer OTHER ==
[~2018-10-05] VITALS: Wt 86.3 kg
[~2018-10-05 18:50] MED LIST changes: +HYDR-4011 PO
[2018-10-05] MEDS ORDERED: LABETALOL HCL 20MG INJ IV ONE (20:30)
[2018-10-05] MEDS ORDERED: HYDR25TA6 PO (21:42)
--- NOTE | 2018-10-05 21:43 | ERD ---
ER Documentation Chief Complaint Chief Complaint C/O MANNING X'S 1 DAY, BP 212/112 HPI Patient is a 33-year-old female with no medical problems who presents for headache and high blood pressure. She also feels constipated. She felt dizzy. Her symptoms started today. She does not take blood pressure medications and says that she does not have a history of high blood pressure. Upon review of old medical records the patient has multiple visits to the ER for various complaints. ROS All systems reviewed and are negative except as per history of present illness. Medications Home Meds Active Scripts Hydrochlorothiazide* (Hydrochlorothiazide*) 25 Mg Tab, 25 MG PO DAILY, #30 TAB Prov:HAYLEY GALLAGHER MD 10/05/18 Discontinued Reported Medications Naproxen* (Naproxen EC*) Unknown Strength Tablet.dr, PO BID, TAB 04/06/15 Amoxicillin Trihydrate (Amoxicillin) Unknown Strength Tablet, PO QID, TAB 04/06/15 Acetaminophen-Codeine (Tylenol With Codeine #3 Tablet) Unknown Strength Tablet, PO Q4H PRN for PAIN, TAB 04/06/15 Discontinued Scripts Hydrocodone/Acetaminophen ([place] 5-325 Tablet) 1 Each Tablet, 1 TAB PO Q6H PRN for SEVERE PAIN LEVEL 7-10, #20 TAB Prov:GARCIA HESTER NP 04/29/17 Ibuprofen* (Motrin*) 600 Mg Tab, 600 MG PO Q6, #15 TAB Prov:MAG BAPTISTE MD 04/26/17 Amoxicillin* (Amoxicillin*) 500 Mg Cap, 500 MG PO TID for 10 Days, CAP Prov:MAG BAPTISTE MD 04/26/17 Ibuprofen* (Motrin*) 600 Mg Tab, 600 MG PO Q6, #30 TAB Prov:CHASTITY HU PA-C 04/08/17 Sulfamethoxazole/Trimethoprim* (Bactrim Ds* Tablet) 1 Each Tablet, 1 TAB PO BID, #14 TAB Prov:CHASTITY HU PA-C 04/08/17 Cephalexin* (Keflex*) 500 Mg Capsule, 500 MG PO QID for 7 Days, CAP Prov:CHASTITY HU PA-C 04/08/17 Triamcinolone Acetonide (Triamcinolone Acetonide) 0.5% - 15 Gm Oint..gm., 1 APPLIC TOP BID, #1 TUB Prov:KAVON ADAMSON PA-C 12/10/16 Prednisone* (Prednisone*) 20 Mg Tab, 40 MG PO DAILY for 4 Days, TAB Prov:KAVON ADAMSON PA-C 12/10/16 Cephalexin* (Keflex*) 500 Mg Capsule, 500 MG PO QID for 5 Days, CAP Prov:EDDIE AVALOSHaley INTERNAL AUDIT DIRECTOR 10/26/16 Prednisone* (Prednisone*) 20 Mg Tab, 40 MG PO DAILY for 5 Days, TAB Prov:EDDIE AVALOS Axel INTERNAL AUDIT DIRECTOR 10/26/16 Hydrophilic Base* (Aquaphor*) 454 Gm-Topical Oint, 1 APPLIC TOP BID for 30 Days, #120 JAR Prov:NICOLE,FABIAN 10/14/16 Cephalexin* (Keflex*) 500 Mg Capsule, 500 MG PO QID for 10 Days, CAP Prov:NICOLE,FABIAN 10/14/16 Allergies Allergies: Coded Allergies: No Known Allergy (Verified , 10/05/18) PMhx/Soc Medical and Surgical Hx: pt denies Medical Hx History of Surgery: No Anesthesia Reaction: No Hx Neurological Disorder: No Hx Respiratory Disorders: No Hx Cardiac Disorders: No Hx Psychiatric Problems: No Hx Miscellaneous Medical Probl: No Hx Alcohol Use: No Hx Substance Use: No Hx Tobacco Use: No Smoking Status: Never smoker FmHx Family History: diabetes Physical Exam Vitals Vital Signs Date Temp Pulse Resp B/P (MAP) Pulse Ox O2 O2 Flow FiO2 Time Delivery Rate 10/05/18 74 20 153/102 98 Room Air 22:07 (119) 10/05/18 78 20 151/101 98 Room Air 20:47 (118) 10/05/18 20 186/112 20:09 (136) 10/05/18 98.3 96 20 212/112 98 18:59 (145) Physical Exam Const: No acute distress Head: Atraumatic Eyes: Normal Conjunctiva ENT: Normal External Ears, Nose and Mouth. Neck: Full range of motion. No meningismus. Resp: Clear to auscultation bilaterally Cardio: Regular rate and rhythm, no murmurs Abd: Soft, non tender, non distended. Normal bowel sounds Skin: No petechiae or rashes Back: No midline or flank tenderness Ext: No cyanosis, or edema Neur: Awake and alert, cranial nerves II through XII are intact, strength is 5 out of 5 in all 4 extremities, no slurred speech Psych: Normal Mood and Affect Result Diagram: 10/05/18201310/05/182013 Results 24 hrs Laboratory Tests Test 10/05/18 20:14 10/05/18 20:47 White Blood Count 5.2 10^3/ul Red Blood Count 3.85 10^6/ul Hemoglobin 12.7 g/dl Hematocrit 37.4 % Mean Corpuscular Volume 97.1 fl Mean Corpuscular Hemoglobin 33.0 pg Mean Corpuscular Hemoglobin Concent 34.0 g/dl Red Cell Distribution Width 12.1 % Platelet Count 226 10^3/UL Mean Platelet Volume 9.0 fl Immature Granulocytes % 0.200 % Neutrophils % 42.6 % Lymphocytes % 49.2 % Monocytes % 5.7 % Eosinophils % 1.7 % Basophils % 0.6 % Nucleated Red Blood Cells % 0.0 /100WBC Immature Granulocytes # 0.010 10^3/ul Neutrophils # 2.2 10^3/ul Lymphocytes # 2.6 10^3/ul Monocytes # 0.3 10^3/ul Eosinophils # 0.1 10^3/ul Basophils # 0.0 10^3/ul Nucleated Red Blood Cells # 0.0 10^3/ul Sodium Level 142 mmol/L Potassium Level 3.2 mmol/L Chloride Level 105 mmol/L Carbon Dioxide Level 32 mmol/L Anion Gap 5 Blood Urea Nitrogen 12 mg/dl Creatinine 0.80 mg/dl Est Glomerular Filtrat Rate mL/min > 60 mL/min Glucose Level 65 mg/dl Calcium Level 8.8 mg/dl Troponin I < 0.012 ng/ml POC Beta HCG, Qualitative NEGATIVE Current Medications Medications Dose Sig/Gogo Start Time Status Last (Trade) Ordered Route PRN Stop Time Admin Dose Reason Admin Labetalol 20 mg ONCE ONCE 10/05/18 DC 10/05/18 HCl IV 20:30 20:29 (Labetalol) 10/05/18 20:31 Procedures/MDM EKG read by me: Rate/Rhythm: Regular rate and rhythm at a rate of 84 Intervals: Normal Impression: No evidence of ischemia or arrhythmia Patient is a 33-year-old female presents with high blood pressure. Laboratory studies are basically normal. EKG shows no signs of ischemia. At this point I believe patient has acute underlying hypertension. The patient was given labetalol IV and will be given a prescription for hydrochlorothiazide for 1 mo nth course. She does not currently have a primary doctor and I told her that the most important thing was that she obtain a primary doctor and see him within the next 24 to 48 hours. He can return for any worsening symptoms. Departure Diagnosis: Primary Impression: Hypertension Hypertension type: essential hypertension Qualified Codes: I10 - Essential (primary) hypertension Condition: Fair Patient Instructions: High Blood Pressure (Hypertension) Referrals: [facility] YOU HAVE RECEIVED A MEDICAL SCREENING EXAM AND THE RESULTS INDICATE THAT YOU DO NOT HAVE A CONDITION THAT REQUIRES URGENT TREATMENT IN THE EMERGENCY DEPARTMENT. FURTHER EVALUATION AND TREATMENT OF YOUR CONDITION CAN WAIT UNTIL YOU ARE SEEN IN YOUR DOCTORS OFFICE WITHIN THE NEXT 1-2 DAYS. IT IS YOUR RESPONSIBILITY TO MAKE AN APPOINTMENT FOR FOLOW-UP CARE. IF YOU HAVE A PRIMARY DOCTOR --you should call your primary doctor and schedule an appointment IF YOU DO NOT HAVE A PRIMARY DOCTOR YOU CAN CALL OUR PHYSICIAN REFERRAL HOTLINE AT IF YOU CAN NOT AFFORD TO SEE A PHYSICIAN YOU CAN CHOSE FROM THE FOLLOWING [facility] [address] [facility]. [facility] [address] [facility] [address] [facility] [facility] [address] [facility]. [facility] [address] [facility]. [facility]. [address] Additional Instructions: Call your primary care doctor TOMORROW for an appointment during the next 1-2 days.See the doctor sooner or return here if your condition worsens before your appointment time. HAYLEY GALLAGHER MD October 05, 2018 21:43
[2018-10-05 22:07] VITALS: BP 153/102; PULSE 74; RESP 20
== END 2018-10-05 22:09 | disposition home or self-care (01) ==
LOC: E/R 18:50
DX: I10 Essential (primary) hypertension (principal); R40.2142 Coma scale, eyes open, spontaneous, at arrival to emergency department; R40.2252 Coma scale, best verbal response, oriented, at arrival to emergency department; R40.2362 Coma scale, best motor response, obeys commands, at arrival to emergency department
CPT/HCPCS: 36415; 80048; 81025; 84484; 85025; 93005; 96374; Z7502; Z7610

== ENCOUNTER 2018-12-19 02:14 | Emergency (ER) | payer OTHER ==
[~2018-12-19] VITALS: Ht 157.5 cm; Wt 88.7 kg
[~2018-12-19 02:14] MED LIST changes: -ACET-1145 PO; -AMOX500C2 PO; -AMOX500T PO; -CEPH-443 PO; -HDRP454O TOP; -HYDR-4011 PO; +HYDR25TA6 PO; -IBUP-1542 PO; -NAPR500T8 PO; -PRED20TA PO; +SILV20CR13 TOP; -SULF1TAB31 PO; -TRIA15OI9 TOP
[2018-12-19 02:19] VITALS: Ht 157.5 cm; Wt 88.7 kg
[2018-12-19] MEDS ORDERED: LORAZEPAM 1 MG TAB PO ONE (03:30)
[2018-12-19 04:31] VITALS: BP 133/82; PULSE 68; RESP 16
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
== END 2018-12-19 04:30 | disposition home or self-care (01) ==
LOC: FTE 02:14
DX: T20.24XD Burn of second degree of nose (septum), subsequent encounter (principal); F41.9 Anxiety disorder, unspecified; T20.26XD Burn of second degree of forehead and cheek, subsequent encounter; X10.2XXD Contact with fats and cooking oils, subsequent encounter; Y92.009 Unspecified place in unspecified non-institutional (private) residence as the place of occurrence of the external cause
CPT/HCPCS: 81025; Z7610; 99283